=== PATIENT | female | born 1950 | race African-American/Black ===

== ENCOUNTER 2021-06-23 16:40 | Observation (INO) | payer OTHER ==
[2021-06-23 19:22] LABS: BASO % 0.7 % (0-2.0); EOS % 0.1 % (0-4.5); HEMATOCRIT 42.7 % (32.4-45.2); HEMOGLOBIN 14.4 GM/dL (10.7-15.3); LYMPH % 22.5 % (8-40); MCHC 33.8 g/dl (32.0-36.0); MEAN CELL VOLUME 88.9 fl (80-96); MEAN PLT VOLUME 8.5 fl (7.5-11.1); MONO % 6.6 % (3.8-10.2); NEUT % 70.1 % (42.8-82.8); PLATELET COUNT 197 10^3/uL (134-434); RDW 14.7 % (11.6-15.6); WHITE BLOOD COUNT 6.5 K/mm3 (4.0-10.0)
[2021-06-23 19:49] LABS: ALBUMIN 3.9 g/dl (3.4-5.0); CALCIUM 10.8 mg/dL (8.5-10.1)
[2021-06-23] MEDS ORDERED: MIDAZOLAM HCL 2 MG/2 ML SINGLE DOSE VIAL IVPUSH ONE (19:50)
[2021-06-23] MEDS ORDERED: MIDAZOLAM HCL 2 MG/2 ML SINGLE DOSE VIAL ONE (19:52)
[2021-06-23 19:53] LABS: CREATININE 1.4 mg/dL (0.55-1.3)
[2021-06-23 19:54] LABS: BILIRUBIN,TOTAL 0.5 mg/dL (0.2-1)
[2021-06-23] MEDS ORDERED: MIDAZOLAM HCL 2 MG/2 ML SINGLE DOSE VIAL IM ONE (20:45)
[2021-06-23] MEDS ORDERED: HALOPERIDOL LACTATE 5 MG/ML IM ONE (22:18)
[2021-06-23] MEDS ORDERED: HALOPERIDOL LACTATE 5 MG/ML ONE (22:20)
[2021-06-23 22:27] LABS: EPI CELLS 5 /uL (0-25.1); HYALINE CASTS 2 /uL (0-3.1); URINE APPEARANCE CLEAR; URINE BACTERIA 4 /uL (0-1359); URINE BILIRUBIN NEGATIVE (NEGATIVE); URINE COLOR YELLOW; URINE GLUCOSE (UA) NEGATIVE (NEGATIVE); URINE KETONE NEGATIVE (NEGATIVE); URINE LEUK ESTERASE NEGATIVE (NEGATIVE); URINE NITRITE NEGATIVE (NEGATIVE); URINE PROTEIN NEGATIVE (NEGATIVE); URINE RBC 18 /uL (0-23.9); URINE WBC 28 /uL (0-25.8)
[2021-06-23 22:49] LABS: URINE CRYSTALS FEW /hpf
[2021-06-24] MEDS: HEPARIN NA (PORCINE) 5,000 UNITS/ML 1ML VIAL SQ SCH ×4 (02:57→21:20)
[2021-06-24 03:12] VITALS: BMI 20.1
[2021-06-24 06:36] LABS: BASO % 0.5 % (0-2.0); HEMATOCRIT 41.3 % (32.4-45.2); HEMOGLOBIN 13.9 GM/dL (10.7-15.3); LYMPH % 13.9 % (8-40); MCH 29.6 pg (25.7-33.7); MCHC 33.6 g/dl (32.0-36.0); MEAN CELL VOLUME 88.1 fl (80-96); MEAN PLT VOLUME 8.2 fl (7.5-11.1); MONO % 7.1 % (3.8-10.2); NEUT % 78.5 % (42.8-82.8); PLATELET COUNT 186 10^3/uL (134-434); RBC 4.69 M/mm3 (3.60-5.2); RDW 14.4 % (11.6-15.6); WHITE BLOOD COUNT 6.9 K/mm3 (4.0-10.0)
[2021-06-24 06:58] LABS: BLOOD UREA NITROGEN 18.5 mg/dL (7-18); CALCIUM 10.8 mg/dL (8.5-10.1)
[2021-06-24] MEDS ORDERED: IBUPROFEN 400 MG TABLET (FP) PO PRN (08:32)
[2021-06-24] MEDS ORDERED: ACETAMINOPHEN 325 MG TABLET (FP) PO PRN (08:32)
[2021-06-24] MEDS ORDERED: NITROGLYCERIN SUBLINGUAL 1/150 0.4 MG TAB SL PRN (08:41)
[2021-06-24] MEDS: ASPIRIN 81 MG CHEWABLE TABLETS PO SCH (09:48)
[2021-06-24] MEDS: amLODIPine BESYLATE 5 MG TABLET (FP) PO SCH (09:48)
[2021-06-24] MEDS: CHOLECALCIFEROL (VIT D3) 1,000 UNIT (25 MCG) TABLET PO SCH (09:49)
[2021-06-24] MEDS: ENALAPRIL MALEATE 10 MG TABLET PO SCH ×2 (09:49→21:20)
[2021-06-24] MEDS: ZINC OXIDE 20% TOPICAL OINTMENT 30 GM TUBE TP SCH (11:43)
[2021-06-24] MEDS: CYANOCOBALAMIN 1,000 MCG TABLET (FP) PO SCH (11:43)
[2021-06-24] MEDS: NYSTATIN 100,000 UNIT/GM TOPICAL CREAM 15 GM TUBE TP SCH ×2 (11:43→21:20)
[2021-06-24] MEDS: ATORVASTATIN CA 20 MG TABLET (FP) PO SCH (21:20)
[2021-06-24] MEDS: DONEPEZIL HCL 10 MG TABLET (FP) PO SCH (21:20)
[2021-06-24] MEDS: LATANOPROST 0.005% OPHTH SOLN 2.5ML BOTTLE OU SCH (21:20)
[2021-06-25] MEDS: HEPARIN NA (PORCINE) 5,000 UNITS/ML 1ML VIAL SQ SCH ×3 (06:16→21:21)
[2021-06-25] MEDS ORDERED: PT OWN MED DRAWER 7, Y5N ONE (10:21)
[2021-06-25] MEDS: amLODIPine BESYLATE 5 MG TABLET (FP) PO SCH (10:28)
[2021-06-25] MEDS: ASPIRIN 81 MG CHEWABLE TABLETS PO SCH (10:28)
[2021-06-25] MEDS: ENALAPRIL MALEATE 10 MG TABLET PO SCH ×2 (10:28→21:21)
[2021-06-25] MEDS: CYANOCOBALAMIN 1,000 MCG TABLET (FP) PO SCH (10:29)
[2021-06-25] MEDS: CHOLECALCIFEROL (VIT D3) 1,000 UNIT (25 MCG) TABLET PO SCH (10:29)
[2021-06-25] MEDS: NYSTATIN 100,000 UNIT/GM TOPICAL CREAM 15 GM TUBE TP SCH ×2 (11:00→21:21)
[2021-06-25] MEDS: ZINC OXIDE 20% TOPICAL OINTMENT 30 GM TUBE TP SCH (11:00)
[2021-06-25 11:30] LABS: CALCIUM 10.2 mg/dL (8.5-10.1)
[2021-06-25 11:31] LABS: ALBUMIN 3.8 g/dl (3.4-5.0)
[2021-06-25 11:34] LABS: CREATININE 1.1 mg/dL (0.55-1.3)
[2021-06-25 11:35] LABS: BILIRUBIN,TOTAL 0.8 mg/dL (0.2-1); TOT PROT 6.4 g/dl (6.4-8.2)
[2021-06-25 11:55] LABS: BASO % 1.8 % (0-2.0); EOS % 2.1 % (0-4.5); HEMATOCRIT 43.1 % (32.4-45.2); HEMOGLOBIN 14.3 GM/dL (10.7-15.3); LYMPH % 45.3 % (8-40); MCH 29.9 pg (25.7-33.7); MCHC 33.1 g/dl (32.0-36.0); MEAN CELL VOLUME 90.4 fl (80-96); MEAN PLT VOLUME 9.1 fl (7.5-11.1); MONO % 7.1 % (3.8-10.2); NEUT % 43.7 % (42.8-82.8); PLATELET COUNT 194 10^3/uL (134-434); RBC 4.77 M/mm3 (3.60-5.2); RDW 15.1 % (11.6-15.6); WHITE BLOOD COUNT 5.2 K/mm3 (4.0-10.0)
[2021-06-25] MEDS: DONEPEZIL HCL 10 MG TABLET (FP) PO SCH (21:21)
[2021-06-25] MEDS: LATANOPROST 0.005% OPHTH SOLN 2.5ML BOTTLE OU SCH (21:21)
[2021-06-25] MEDS: ATORVASTATIN CA 20 MG TABLET (FP) PO SCH (21:21)
[2021-06-26] MEDS: HEPARIN NA (PORCINE) 5,000 UNITS/ML 1ML VIAL SQ SCH ×3 (06:46→21:03)
[2021-06-26] MEDS ORDERED: PT OWN MED DRAWER 7, Y5N ONE (10:10)
[2021-06-26] MEDS: ASPIRIN 81 MG CHEWABLE TABLETS PO SCH (10:14)
[2021-06-26] MEDS: CHOLECALCIFEROL (VIT D3) 1,000 UNIT (25 MCG) TABLET PO SCH (10:14)
[2021-06-26] MEDS: ENALAPRIL MALEATE 10 MG TABLET PO SCH ×2 (10:14→21:02)
[2021-06-26] MEDS: amLODIPine BESYLATE 5 MG TABLET (FP) PO SCH (10:14)
[2021-06-26] MEDS: NYSTATIN 100,000 UNIT/GM TOPICAL CREAM 15 GM TUBE TP SCH ×2 (10:14→21:03)
[2021-06-26] MEDS: CYANOCOBALAMIN 1,000 MCG TABLET (FP) PO SCH (10:14)
[2021-06-26] MEDS: ZINC OXIDE 20% TOPICAL OINTMENT 30 GM TUBE TP SCH (17:19)
[2021-06-26] MEDS: DONEPEZIL HCL 10 MG TABLET (FP) PO SCH (21:02)
[2021-06-26] MEDS: ATORVASTATIN CA 20 MG TABLET (FP) PO SCH (21:02)
[2021-06-26] MEDS: LATANOPROST 0.005% OPHTH SOLN 2.5ML BOTTLE OU SCH (21:03)
[2021-06-26] MEDS ORDERED: MELATONIN 1 MG TABLET PO SCH (22:00)
[2021-06-27] MEDS: HEPARIN NA (PORCINE) 5,000 UNITS/ML 1ML VIAL SQ SCH ×2 (05:50→15:55)
[2021-06-27 07:00] VITALS: TEMP 98.2
[2021-06-27] MEDS ORDERED: PT OWN MED DRAWER 7, Y5N ONE (09:57)
[2021-06-27] MEDS: CYANOCOBALAMIN 1,000 MCG TABLET (FP) PO SCH (10:04)
[2021-06-27] MEDS: amLODIPine BESYLATE 5 MG TABLET (FP) PO SCH (10:04)
[2021-06-27] MEDS: ZINC OXIDE 20% TOPICAL OINTMENT 30 GM TUBE TP SCH (10:04)
[2021-06-27] MEDS: CHOLECALCIFEROL (VIT D3) 1,000 UNIT (25 MCG) TABLET PO SCH (10:04)
[2021-06-27] MEDS: ENALAPRIL MALEATE 10 MG TABLET PO SCH (10:04)
[2021-06-27] MEDS: ASPIRIN 81 MG CHEWABLE TABLETS PO SCH (10:04)
[2021-06-27] MEDS: NYSTATIN 100,000 UNIT/GM TOPICAL CREAM 15 GM TUBE TP SCH (10:04)
[2021-06-27 14:47] VITALS: PULSE 78
[2021-06-27 17:58] VITALS: BP 106/60
== END 2021-06-27 20:24 | disposition home or self-care (01) ==
LOC: JER 16:40 → INTOOBSV 20:45 → JERBED 20:45 → J2W 06-24 02:38
PROVIDERS: ADMIT Internal Medicine; ATTEND Internal Medicine
PROC: 3E023GC Introduction of Other Therapeutic Substance into Muscle, Percutaneous Approach (ICD-10-PCS; principal; 2021-06-23)
PROC: 3E033NZ Introduction of Analgesics, Hypnotics, Sedatives into Peripheral Vein, Percutaneous Approach (ICD-10-PCS; 2021-06-23)
DX: E05.90 Thyrotoxicosis, unspecified without thyrotoxic crisis or storm (principal); I24.8 Other forms of acute ischemic heart disease; E78.5 Hyperlipidemia, unspecified; I10 Essential (primary) hypertension; F03.90 Unspecified dementia, unspecified severity, without behavioral disturbance, psychotic disturbance, mood disturbance, and anxiety; Z86.59 Personal history of other mental and behavioral disorders; R77.8 Other specified abnormalities of plasma proteins; R00.1 Bradycardia, unspecified; R93.89 Abnormal findings on diagnostic imaging of other specified body structures; W10.9XXA Fall (on) (from) unspecified stairs and steps, initial encounter; Y93.89 Activity, other specified; Y92.89 Other specified places as the place of occurrence of the external cause
CPT/HCPCS: 36415; 70450-TC; 71045-TC-FY; 71250-TC; 72125-TC; 80048; 80053; 81003; 82310; 82550; 82607; 83970; 84443; 84484; 85025; 87086; 93005; 93010; 93225; 93226; 93306-TC; 96372; 99285-25; C9803; G0378; J1644; U0003; U0005

== ENCOUNTER 2024-06-05 18:46 | Observation (INO) | payer OTHER ==
[2024-06-05 19:04] VITALS: BMI 25.7
[2024-06-05 20:27] LABS: BASO % 0.5 % (0-2.0); EOS % 1.9 % (0-4.5); HEMATOCRIT 40.6 % (32.4-45.2); HEMOGLOBIN 13.2 GM/dL (10.7-15.3); LYMPH % 24.2 % (8-40); MCH 28.7 pg (25.7-33.7); MCHC 32.6 g/dl (32.0-36.0); MEAN CELL VOLUME 88.1 fl (80-96); MEAN PLT VOLUME 8.2 fl (7.5-11.1); NEUT % 66.4 % (42.8-82.8); PLATELET COUNT 194 10^3/uL (134-434); RBC 4.61 M/mm3 (3.60-5.2); RDW 14.6 % (11.6-15.6); WHITE BLOOD COUNT 5.6 K/mm3 (4.0-10.0)
[2024-06-05 20:30] LABS: EPI CELLS 23 /uL (0-25.1); HYALINE CASTS 2 /uL (0-3.1); PH,URINE 5.5 (5.0-8.0); URINE APPEARANCE CLEAR; URINE BACTERIA 302 /uL (0-1359); URINE BILIRUBIN NEGATIVE (NEGATIVE); URINE COLOR YELLOW; URINE GLUCOSE (UA) NEGATIVE (NEGATIVE); URINE KETONE TRACE (NEGATIVE); URINE LEUK ESTERASE 1+ (NEGATIVE); URINE NITRITE NEGATIVE (NEGATIVE); URINE PROTEIN NEGATIVE (NEGATIVE); URINE RBC 78 /uL (0-23.9); URINE WBC 41 /uL (0-25.8)
[2024-06-05 20:35] LABS: INR 0.98 (0.83-1.09); PROTHROMBIN TIME (PATIENT) 11.1 SEC (9.7-13.0)
[2024-06-05 20:38] LABS: ACTIVATED PTT 23.9 SECONDS (25.2-36.5)
[2024-06-05 20:50] LABS: POTASSIUM 4.2 mmol/L (3.5-5.1)
[2024-06-05 20:52] LABS: BLOOD UREA NITROGEN 30.7 mg/dL (7-18); CALCIUM 10.7 mg/dL (8.5-10.1)
[2024-06-05 20:53] LABS: ALBUMIN 3.2 g/dl (3.4-5.0)
[2024-06-05 20:56] LABS: CREATININE 1.1 mg/dL (0.55-1.3)
[2024-06-05 20:57] LABS: BILIRUBIN,TOTAL 0.2 mg/dL (0.2-1); TOT PROT 6.2 g/dl (6.4-8.2)
[2024-06-05] MEDS ORDERED: CEFTRIAXONE 1 GM/50 ML BAG ONE (21:42)
[2024-06-05] MEDS: DONEPEZIL HCL 10 MG TABLET (FP) PO SCH (22:47)
[2024-06-05] MEDS: ATORVASTATIN CA 20 MG TABLET (FP) PO SCH (22:47)
[2024-06-05] MEDS ORDERED: ACETAMINOPHEN 325 MG TABLET (FP) PO PRN (23:45)
[2024-06-06] MEDS: BRIMONIDINE TARTRATE 0.15% OPHTHALMIC 5 ML BOTTLE OU SCH (06:11)
[2024-06-06 08:43] LABS: BASO % 0.8 % (0-2.0); EOS % 3.4 % (0-4.5); HEMATOCRIT 41.4 % (32.4-45.2); HEMOGLOBIN 13.5 GM/dL (10.7-15.3); LYMPH % 34.8 % (8-40); MCH 28.8 pg (25.7-33.7); MCHC 32.5 g/dl (32.0-36.0); MEAN CELL VOLUME 88.5 fl (80-96); MEAN PLT VOLUME 8.2 fl (7.5-11.1); MONO % 7.4 % (3.8-10.2); NEUT % 53.6 % (42.8-82.8); PLATELET COUNT 190 10^3/uL (134-434); RBC 4.68 M/mm3 (3.60-5.2); RDW 14.4 % (11.6-15.6); WHITE BLOOD COUNT 4.8 K/mm3 (4.0-10.0)
[2024-06-06 09:07] LABS: POTASSIUM 3.8 mmol/L (3.5-5.1)
[2024-06-06 09:10] LABS: CALCIUM 10.6 mg/dL (8.5-10.1)
[2024-06-06 09:11] LABS: ALBUMIN 3.2 g/dl (3.4-5.0); BLOOD UREA NITROGEN 26.2 mg/dL (7-18)
[2024-06-06 09:14] LABS: CREATININE 0.8 mg/dL (0.55-1.3)
[2024-06-06 09:15] LABS: BILIRUBIN,TOTAL 0.6 mg/dL (0.2-1)
[2024-06-06] MEDS: ENALAPRIL MALEATE 10 MG TABLET PO SCH (11:09)
[2024-06-06] MEDS: ASPIRIN 81 MG CHEWABLE TABLETS PO SCH (11:09)
[2024-06-06] MEDS: amLODIPine BESYLATE 5 MG TABLET (FP) PO SCH (11:09)
[2024-06-06] MEDS: CEFTRIAXONE 1 GM in DEXTROSE 5%-WATER - 50 ML IVPB SCH (16:05)
[2024-06-06] MEDS: LATANOPROST 0.005% OPHTH SOLN 2.5ML BOTTLE OU SCH (21:48)
[2024-06-07 09:33] LABS: N-TERMINAL BNP 767.5 pg/ml (5-450)
[2024-06-08 01:43] VITALS: RESP 16
[2024-06-08 18:44] VITALS: BP 138/66; PULSE 76; TEMP 98.5
== END 2024-06-08 21:03 ==
LOC: JER 18:46 → JERBED 20:18 → J4S 06-06 00:05
PROVIDERS: ADMIT Internal Medicine; ATTEND Internal Medicine
DX: N39.0 Urinary tract infection, site not specified (principal); R77.8 Other specified abnormalities of plasma proteins; F03.90 Unspecified dementia, unspecified severity, without behavioral disturbance, psychotic disturbance, mood disturbance, and anxiety; I10 Essential (primary) hypertension; E78.5 Hyperlipidemia, unspecified; R55 Syncope and collapse; J44.9 Chronic obstructive pulmonary disease, unspecified; E21.3 Hyperparathyroidism, unspecified; R00.1 Bradycardia, unspecified; W10.9XXA Fall (on) (from) unspecified stairs and steps, initial encounter; Y93.89 Activity, other specified; Y92.008 Other place in unspecified non-institutional (private) residence as the place of occurrence of the external cause
CPT/HCPCS: 0241U-QW; 36415; 70450-TC; 71045-TC-FY; 80053; 80061; 81003; 82550; 83036; 83880; 84439; 84443; 84484; 85025; 85610; 85730; 87086; 87186; 93005; 93010; 93306-TC; 93880-TC; 96365; 96375; 99285-25; G0378